=== PATIENT | female | born 1960 | race Caucasian/White ===

== ENCOUNTER → 2017-12-12 | Emergency (ER) | payer MEDICAID ==
[~2017-12-12] VITALS: Ht 165.1 cm; Wt 90.5 kg
[~2017-12-12] MED LIST: CEPH500C5 PO; DIPH-423 PO; EPIN0.3P8 IM; FAMO-128 PO; GEMF600T3 PO; LEVO50TA67 PO; LORA10TA65 PO; METH4TAB3 PO; OXYC-150 PO; PANT40TA39 PO; SUCR1ORA PO; albuterol 2.5 MG/3 ML nebule NEB ONE; diphenhydrAMINE 50 mg/ml inj IV ONE; epiNEPHrine 1 mg/ml inj SQ STA; famotidine/PF 10 mg/ml inj IV ONE; methylPREDNISolone sod succ 125mg/2ml vial IV ONE
[2017-12-12 21:33] VITALS: BP 118/57
== END | disposition home or self-care (01) ==
LOC: ER 17:59
DX: T78.02XA Anaphylactic reaction due to shellfish (crustaceans), initial encounter (principal); G89.29 Other chronic pain; E03.9 Hypothyroidism, unspecified; E78.00 Pure hypercholesterolemia, unspecified; I10 Essential (primary) hypertension; Z90.49 Acquired absence of other specified parts of digestive tract; Z90.710 Acquired absence of both cervix and uterus; Z88.5 Allergy status to narcotic agent
CPT/HCPCS: 94640; 94760; 96372; 96374; 96375; 96376; 99284; J0171; J1200; J2930; J3490

== ENCOUNTER 2018-01-03 17:51 | Emergency (ER) | payer MEDICAID ==
[~2018-01-03] VITALS: Ht 170.2 cm; Wt 83.0 kg
[~2018-01-03 17:51] MED LIST changes: -CEPH500C5 PO; -OXYC-150 PO; -albuterol 2.5 MG/3 ML nebule NEB ONE; -diphenhydrAMINE 50 mg/ml inj IV ONE; -epiNEPHrine 1 mg/ml inj SQ STA; -famotidine/PF 10 mg/ml inj IV ONE; -methylPREDNISolone sod succ 125mg/2ml vial IV ONE
[2018-01-03] MEDS ORDERED: TRAM50TA2 PO (22:09)
[2018-01-03] MEDS ORDERED: LIDO700A32 TOP (22:09)
[2018-01-03] MEDS ORDERED: BACL10TA PO (22:09)
[2018-01-03] MEDS ORDERED: LIDOcaine 5% patch TP ONE (22:15)
[2018-01-03] MEDS ORDERED: acetaminophen 325mg tablet PO ONE (22:15)
[2018-01-03 22:24] VITALS: BP 135/65
== END 2018-01-03 22:27 | disposition home or self-care (01) ==
LOC: ER 17:52
DX: M54.9 Dorsalgia, unspecified (principal); E78.00 Pure hypercholesterolemia, unspecified; I10 Essential (primary) hypertension; E03.9 Hypothyroidism, unspecified; Z88.6 Allergy status to analgesic agent
CPT/HCPCS: 99283

== ENCOUNTER 2019-04-10 10:04 | Emergency (ER) | payer MEDICAID ==
[~2019-04-10] VITALS: Ht 167.6 cm; Wt 100.0 kg
[~2019-04-10 10:04] MED LIST changes: +BACL10TA PO; -GEMF600T3 PO; +GEMF600T89 PO; +LIDO700A32 TOP
[2019-04-10 10:08] VITALS: BP 174/84
--- NOTE | 2019-04-10 10:21 | NUR ---
PT'S TWO YELLOW RINGS CUT AND REMOVED AND GIVEN TO THE PT AND SHE STATES SHE WILL PUT THEM IN HER WALLET.
[2019-04-10] MEDS ORDERED: LIDOcaine 1% w/epiNEPHrine 1:200,000 30ml vial IM ONE (10:35)
== END 2019-04-10 11:22 | disposition home or self-care (01) ==
LOC: ER 10:05
DX: S63.275A Dislocation of unspecified interphalangeal joint of left ring finger, initial encounter (principal); E78.00 Pure hypercholesterolemia, unspecified; I10 Essential (primary) hypertension; E03.9 Hypothyroidism, unspecified; G89.29 Other chronic pain; Z90.49 Acquired absence of other specified parts of digestive tract; Z90.710 Acquired absence of both cervix and uterus; Z98.890 Other specified postprocedural states; Z88.5 Allergy status to narcotic agent; Z79.899 Other long term (current) drug therapy; W01.0XXA Fall on same level from slipping, tripping and stumbling without subsequent striking against object, initial encounter; Y93.89 Activity, other specified; Y92.89 Other specified places as the place of occurrence of the external cause; Y99.8 Other external cause status
CPT/HCPCS: 26770; 73120; 73140; 99284; J3490

== ENCOUNTER 2019-12-01 15:05 | Emergency (ER) | payer MEDICAID ==
[~2019-12-01] VITALS: Ht 167.6 cm; Wt 100.0 kg
[~2019-12-01 15:05] MED LIST changes: -SUCR1ORA PO; +SUCR1ORA15 PO
[2019-12-01 15:31] VITALS: BP 137/67
--- NOTE | 2019-12-01 16:14 | NUR ---
pt seen and dc'd by provider
== END 2019-12-01 16:10 | disposition home or self-care (01) ==
LOC: ER 15:06
DX: S30.0XXA Contusion of lower back and pelvis, initial encounter (principal); M54.6 Pain in thoracic spine; E78.00 Pure hypercholesterolemia, unspecified; I10 Essential (primary) hypertension; E03.9 Hypothyroidism, unspecified; G89.29 Other chronic pain; Z90.49 Acquired absence of other specified parts of digestive tract; Z90.710 Acquired absence of both cervix and uterus; Z98.890 Other specified postprocedural states; Z88.5 Allergy status to narcotic agent; Z79.899 Other long term (current) drug therapy; W18.39XA Other fall on same level, initial encounter; Y93.89 Activity, other specified; Y92.098 Other place in other non-institutional residence as the place of occurrence of the external cause; Y99.8 Other external cause status
CPT/HCPCS: 99281

== ENCOUNTER → 2021-06-22 | Emergency (ER) | payer MEDICARE, MEDICAID ==
[~2021-06-22] VITALS: Ht 170.2 cm; Wt 86.3 kg
[~2021-06-22] MED LIST changes: +ALB0.5UD IH; +BUDE10.22 INH; +DIAZ2TAB PO; +LEVO25TA2 PO; +MECL-159 PO; +MECL-231 PO; +METO-395 PO; +acetaminophen 325mg tablet PO ONE; +ketorolac trometh. 30mg/ml inj. IM ONE
[2021-06-22 22:45] VITALS: BP 156/74
== END | disposition home or self-care (01) ==
LOC: ER 22:06
DX: M79.621 Pain in right upper arm (principal); E78.00 Pure hypercholesterolemia, unspecified; I10 Essential (primary) hypertension; E03.9 Hypothyroidism, unspecified; G89.29 Other chronic pain; Z87.01 Personal history of pneumonia (recurrent); Z90.89 Acquired absence of other organs; Z90.49 Acquired absence of other specified parts of digestive tract; Z90.710 Acquired absence of both cervix and uterus; Z98.890 Other specified postprocedural states; Z88.5 Allergy status to narcotic agent; Z88.8 Allergy status to other drugs, medicaments and biological substances; Z79.899 Other long term (current) drug therapy
CPT/HCPCS: 96372; 99283; J1885

== ENCOUNTER 2021-07-05 22:43 | Emergency (ER) | payer MEDICARE, MEDICAID ==
[~2021-07-05] VITALS: Ht 162.6 cm; Wt 98.0 kg
[~2021-07-05 22:43] MED LIST changes: -ALB0.5UD IH; -BUDE10.22 INH; -DIAZ2TAB PO; -LEVO25TA2 PO; -MECL-159 PO; -MECL-231 PO; -METO-395 PO; -acetaminophen 325mg tablet PO ONE; -ketorolac trometh. 30mg/ml inj. IM ONE
[2021-07-05] MEDS ORDERED: aspirin 81mg tab.chew PO ONE (23:00)
[2021-07-05] MEDS ORDERED: nitroGLYCERIN 0.4mg SUBLingual tab SL PRN (23:00)
[2021-07-05] MEDS ORDERED: normal saline 1000ML IV soln IVB ONE (23:10)
[2021-07-05] MEDS ORDERED: ondansetron/PF 4mg/2ml inj IV ONE (23:10)
[2021-07-05] MEDS ORDERED: iohexol 350MG/ML 100ml bottle IV ONE (23:16)
[2021-07-05 23:18] LABS: BASOPHILS % (AUTO) 0.4 % (0-1); EOSINOPHILS # (AUTO) 0.2 X10'3 (0-0.9); EOSINOPHILS % (AUTO) 2.9 % (0-6); HEMATOCRIT 36.3 % (35.0-45.0); HEMOGLOBIN 11.7 g/dl (12.0-16.0); LYMPHOCYTES # (AUTO) 1.8 X10'3 (1.1-4.8); LYMPHOCYTES % (AUTO) 25.1 % (21-51); MEAN CORPUSCULAR HEMOGLOBIN 28.4 PG (27.0-31.0); MEAN CORPUSCULAR HGB CONC 32.3 g/dL (33.0-36.5); MEAN CORPUSCULAR VOLUME 87.7 FL (78-98); MEAN PLATELET VOLUME 7.4 FL (7.4-10.4); MONOCYTES # (AUTO) 0.4 X10'3 (0-0.9); MONOCYTES % (AUTO) 5.3 % (2-12); NEUTROPHILS # (AUTO) 4.7 X10'3 (1.8-7.7); NEUTROPHILS % (AUTO) 66.3 % (42-75); PLATELET COUNT 197 X10'3 (140-440); RED BLOOD COUNT 4.14 X10'6 (4.20-5.60); RED CELL DISTRIBUTION WIDTH 14.5 % (11.5-14.5); WHITE BLOOD COUNT 7.1 X10'3 (4.5-11.0)
[2021-07-05 23:36] LABS: ALANINE AMINOTRANSFERASE 28 U/L (12-78); ALBUMIN 3.9 G/DL (3.4-5.0); ALBUMIN/GLOBULIN RATIO 1.3 (1.1-1.5); ALKALINE PHOSPHATASE 93 IU/L (46-116); ANION GAP 9 (8-16); ASPARTATE AMINO TRANSFERASE 12 U/L (10-37); BILIRUBIN,TOTAL 0.3 MG/DL (0.1-1.0); BLOOD UREA NITROGEN 16 MG/DL (7-18); BUN/CREATININE RATIO 14.5 (6.6-38.0); CALCIUM 8.2 MG/DL (8.5-10.1); CHLORIDE 108 MMOL/L (99-107); GLUCOSE 149 MG/DL (70-104); POTASSIUM 3.9 MMOL/L (3.5-5.1); SODIUM 143 MMOL/L (135-145); TOTAL CARBON DIOXIDE 25.8 MMOL/L (24-32); TOTAL PROTEIN 6.9 G/DL (6.4-8.2); eGFR 50 ML/MIN
[2021-07-05 23:37] LABS: D-DIMER 0.63 MG/L FEU (0-0.50)
[2021-07-05 23:44] LABS: MAGNESIUM 2.3 MG/DL (1.5-2.4); TROPONIN I < 0.04 NG/ML (0.0-0.05)
[2021-07-05] MEDS ORDERED: MECL-231 PO (23:48)
[2021-07-05] MEDS ORDERED: ALB0.5UD IH (23:50)
[2021-07-05] MEDS ORDERED: BUDE10.22 INH (23:50)
[2021-07-05] MEDS ORDERED: METO-395 PO (23:50)
[2021-07-05] MEDS ORDERED: LEVO25TA2 PO (23:50)
[2021-07-06] MEDS ORDERED: acetaminophen 325mg tablet PO ONE (00:50)
[2021-07-06 02:33] VITALS: BP 142/82
== END 2021-07-06 02:39 | disposition home or self-care (01) ==
LOC: ER 22:44
DX: R42 Dizziness and giddiness (principal); I12.9 Hypertensive chronic kidney disease with stage 1 through stage 4 chronic kidney disease, or unspecified chronic kidney disease; N18.9 Chronic kidney disease, unspecified; R10.13 Epigastric pain; R07.89 Other chest pain; R11.2 Nausea with vomiting, unspecified; E78.00 Pure hypercholesterolemia, unspecified; E03.9 Hypothyroidism, unspecified; G89.29 Other chronic pain; Z87.01 Personal history of pneumonia (recurrent); Z90.89 Acquired absence of other organs; Z90.49 Acquired absence of other specified parts of digestive tract; Z90.710 Acquired absence of both cervix and uterus; Z98.890 Other specified postprocedural states; Z88.5 Allergy status to narcotic agent; Z88.8 Allergy status to other drugs, medicaments and biological substances; Z79.899 Other long term (current) drug therapy
CPT/HCPCS: 36415; 71045; 71275; 74174; 80053; 83735; 83880; 84484; 85025; 85379; 93005; 96361; 96374; 99285; J2405; J7030; Q9967

== ENCOUNTER 2021-07-10 16:28 | Emergency (ER) | payer MEDICARE, MEDICAID ==
[~2021-07-10] VITALS: Ht 162.6 cm; Wt 88.6 kg
[~2021-07-10 16:28] MED LIST changes: +ALB0.5UD IH; +BUDE10.22 INH; -FAMO-128 PO; -GEMF600T89 PO; +LEVO25TA2 PO; -LEVO50TA67 PO; +MECL-231 PO; -METH4TAB3 PO; +METO-395 PO; -PANT40TA39 PO; -SUCR1ORA15 PO
[2021-07-10 17:34] LABS: BASOPHILS % (AUTO) 0.7 % (0-1); EOSINOPHILS # (AUTO) 0.3 X10'3 (0-0.9); HEMATOCRIT 38.3 % (35.0-45.0); HEMOGLOBIN 12.5 g/dl (12.0-16.0); LYMPHOCYTES # (AUTO) 1.9 X10'3 (1.1-4.8); LYMPHOCYTES % (AUTO) 30.6 % (21-51); MEAN CORPUSCULAR HGB CONC 32.6 g/dL (33.0-36.5); MEAN CORPUSCULAR VOLUME 88.8 FL (78-98); MEAN PLATELET VOLUME 8.1 FL (7.4-10.4); MONOCYTES # (AUTO) 0.4 X10'3 (0-0.9); MONOCYTES % (AUTO) 6.4 % (2-12); NEUTROPHILS # (AUTO) 3.7 X10'3 (1.8-7.7); NEUTROPHILS % (AUTO) 58.3 % (42-75); PLATELET COUNT 234 X10'3 (140-440); RED BLOOD COUNT 4.31 X10'6 (4.20-5.60); RED CELL DISTRIBUTION WIDTH 14.6 % (11.5-14.5); WHITE BLOOD COUNT 6.3 X10'3 (4.5-11.0)
[2021-07-10 17:42] LABS: ALANINE AMINOTRANSFERASE 27 U/L (12-78); ALBUMIN/GLOBULIN RATIO 1.3 (1.1-1.5); ALKALINE PHOSPHATASE 94 IU/L (46-116); ANION GAP 8 (8-16); ASPARTATE AMINO TRANSFERASE 16 U/L (10-37); BILIRUBIN,TOTAL 0.4 MG/DL (0.1-1.0); BLOOD UREA NITROGEN 19 MG/DL (7-18); BUN/CREATININE RATIO 17.3 (6.6-38.0); CALCIUM 8.8 MG/DL (8.5-10.1); CHLORIDE 107 MMOL/L (99-107); GLUCOSE 110 MG/DL (70-104); POTASSIUM 4.2 MMOL/L (3.5-5.1); SODIUM 142 MMOL/L (135-145); TOTAL CARBON DIOXIDE 26.8 MMOL/L (24-32); TOTAL PROTEIN 7.2 G/DL (6.4-8.2); eGFR 50 ML/MIN
[2021-07-10] MEDS ORDERED: ondansetron 4mg rapidly disintigrating tab PO ONE (18:15)
[2021-07-10] MEDS ORDERED: diphenhydrAMINE 25mg capsule PO ONE (18:35)
--- NOTE | 2021-07-10 18:45 | NUR ---
Assumed care of pt from RN. Agree with previous assessment with no changes to note.
[2021-07-10] MEDS ORDERED: DIAZ2TAB PO (20:18)
[2021-07-10] MEDS ORDERED: MECL-159 PO (21:13)
[2021-07-10 21:38] VITALS: BP 165/78
== END 2021-07-10 21:39 | disposition home or self-care (01) ==
LOC: ER 16:29
DX: R42 Dizziness and giddiness (principal); E78.00 Pure hypercholesterolemia, unspecified; I10 Essential (primary) hypertension; E03.9 Hypothyroidism, unspecified; G89.29 Other chronic pain; Z87.01 Personal history of pneumonia (recurrent); Z90.49 Acquired absence of other specified parts of digestive tract; Z98.890 Other specified postprocedural states; Z90.710 Acquired absence of both cervix and uterus; Z90.5 Acquired absence of kidney; Z88.5 Allergy status to narcotic agent; Z88.8 Allergy status to other drugs, medicaments and biological substances; Z79.899 Other long term (current) drug therapy
CPT/HCPCS: 36415; 70450; 71045; 80053; 82948; 83880; 84484; 85025; 93005; 99285; Q0163

== ENCOUNTER 2022-07-10 23:32 | Emergency (ER) | payer MEDICARE, MEDICAID ==
[~2022-07-10] VITALS: Ht 167.6 cm; Wt 90.9 kg
[~2022-07-10 23:32] MED LIST changes: +DIAZ2TAB PO; +MECL-159 PO
[2022-07-10 23:38] VITALS: BP 145/63
== END 2022-07-11 03:24 | disposition left against medical advice (07) ==
LOC: ER 23:33
DX: R51.9 Headache, unspecified (principal); Z53.21 Procedure and treatment not carried out due to patient leaving prior to being seen by health care provider

== ENCOUNTER 2022-07-20 19:54 | Emergency (ER) | payer MEDICARE, MEDICAID ==
[~2022-07-20] VITALS: Ht 167.6 cm; Wt 90.0 kg
[2022-07-20 20:40] VITALS: BP 149/76
[2022-07-20 20:51] LABS: BASOPHILS % (AUTO) 0.6 % (0-1); EOSINOPHILS # (AUTO) 0.2 X10'3 (0-0.9); EOSINOPHILS % (AUTO) 2.7 % (0-6); HEMATOCRIT 40.5 % (35.0-45.0); HEMOGLOBIN 13.8 g/dl (12.0-16.0); LYMPHOCYTES # (AUTO) 3.1 X10'3 (1.1-4.8); LYMPHOCYTES % (AUTO) 43.4 % (21-51); MEAN CORPUSCULAR HEMOGLOBIN 30.9 PG (27.0-31.0); MEAN CORPUSCULAR HGB CONC 34.1 g/dL (33.0-36.5); MEAN CORPUSCULAR VOLUME 90.6 FL (78-98); MEAN PLATELET VOLUME 8.2 FL (7.4-10.4); MONOCYTES # (AUTO) 0.6 X10'3 (0-0.9); MONOCYTES % (AUTO) 8.8 % (2-12); NEUTROPHILS # (AUTO) 3.2 X10'3 (1.8-7.7); NEUTROPHILS % (AUTO) 44.5 % (42-75); PLATELET COUNT 209 X10'3 (140-440); RED BLOOD COUNT 4.47 X10'6 (4.20-5.60); RED CELL DISTRIBUTION WIDTH 13.4 % (11.5-14.5); WHITE BLOOD COUNT 7.1 X10'3 (4.5-11.0)
[2022-07-20 21:05] LABS: ALANINE AMINOTRANSFERASE 24 U/L (12-78); ALBUMIN 4.3 G/DL (3.4-5.0); ALBUMIN/GLOBULIN RATIO 1.2 (1.1-1.5); ALKALINE PHOSPHATASE 97 IU/L (46-116); ANION GAP 12 (8-16); ASPARTATE AMINO TRANSFERASE 13 U/L (10-37); BILIRUBIN,TOTAL 0.2 MG/DL (0.1-1.0); BLOOD UREA NITROGEN 31 MG/DL (7-18); BUN/CREATININE RATIO 19.4 (6.6-38.0); CALCIUM 9.2 MG/DL (8.5-10.1); CHLORIDE 102 MMOL/L (99-107); GLUCOSE 134 MG/DL (70-104); POTASSIUM 3.6 MMOL/L (3.5-5.1); SODIUM 142 MMOL/L (135-145); TOTAL CARBON DIOXIDE 28.2 MMOL/L (24-32); eGFR 33 ML/MIN
== END 2022-07-20 23:40 | disposition home or self-care (01) ==
LOC: ER 19:55
DX: F41.0 Panic disorder [episodic paroxysmal anxiety] (principal); E78.00 Pure hypercholesterolemia, unspecified; I10 Essential (primary) hypertension; E03.9 Hypothyroidism, unspecified; G89.29 Other chronic pain; Z90.49 Acquired absence of other specified parts of digestive tract; Z88.5 Allergy status to narcotic agent; Z79.899 Other long term (current) drug therapy
CPT/HCPCS: 36415; 71045; 80053; 82948; 83880; 84484; 85025; 93005; 99285

== ENCOUNTER 2024-06-27 15:38 | Emergency (ER) | payer MEDICARE, MEDICAID ==
[~2024-06-27] VITALS: Ht 167.6 cm; Wt 91.2 kg
[~2024-06-27 15:38] MED LIST changes: +LIDO700A47 TOP; -MECL-159 PO; +MECL-302 PO
[2024-06-27 15:40] VITALS: TEMP 98
[2024-06-27] MEDS ORDERED: CEPH-585 PO (16:44)
[2024-06-27] MEDS ORDERED: SULF1TAB49 PO (16:44)
[2024-06-27 16:58] VITALS: BP 121/60; PULSE 69; RESP 16; O2SAT 96
== END 2024-06-27 17:00 | disposition home or self-care (01) ==
LOC: ER 15:39
DX: S80.921A Unspecified superficial injury of right lower leg, initial encounter (principal); S31.109A Unspecified open wound of abdominal wall, unspecified quadrant without penetration into peritoneal cavity, initial encounter; Z88.5 Allergy status to narcotic agent; Z79.1 Long term (current) use of non-steroidal anti-inflammatories (NSAID); Z79.899 Other long term (current) drug therapy; W57.XXXA Bitten or stung by nonvenomous insect and other nonvenomous arthropods, initial encounter; Y93.89 Activity, other specified; Y92.89 Other specified places as the place of occurrence of the external cause; Y99.8 Other external cause status
CPT/HCPCS: 99283

== ENCOUNTER 2024-07-06 02:20 | Emergency (ER) | payer MEDICARE, MEDICAID ==
[~2024-07-06] VITALS: Ht 167.6 cm; Wt 90.9 kg
[~2024-07-06 02:20] MED LIST changes: +CEPH-585 PO; +SULF1TAB49 PO
[2024-07-06] MEDS ORDERED: SULF1TAB45 PO (03:57)
[2024-07-06] MEDS ORDERED: CEPH-585 PO (03:57)
[2024-07-06 04:21] VITALS: PULSE 60
[2024-07-06 04:23] VITALS: BP 117/71; RESP 16; TEMP 97.9; O2SAT 95
== END 2024-07-06 04:28 | disposition home or self-care (01) ==
LOC: ER 02:21
DX: L03.115 Cellulitis of right lower limb (principal); I10 Essential (primary) hypertension; Z88.5 Allergy status to narcotic agent; Z88.6 Allergy status to analgesic agent
CPT/HCPCS: 99283

== ENCOUNTER 2025-09-06 18:59 | Emergency (ER) | payer MEDICARE, MEDICAID ==
[~2025-09-06] VITALS: Ht 167.6 cm; Wt 88.0 kg
[~2025-09-06 18:59] MED LIST changes: -ALB0.5UD IH; +APIX5TAB3 PO; +ATOR40TA72 PO; -BACL10TA PO; +BACL10TA2 PO; -BUDE10.22 INH; -CEPH-585 PO; -DIAZ2TAB PO; -DIPH-423 PO; -EPIN0.3P8 IM; +FURO-149 PO; -LEVO25TA2 PO; +LEVO50TA8 PO; +LIDO-52 TOP; -LIDO700A32 TOP; -LORA10TA65 PO; -MECL-231 PO; -MECL-302 PO; -METO-395 PO; +PANT40TA54 PO; +POTA-207; +SOTA80TA73 PO; -SULF1TAB49 PO
[2025-09-06 19:08] VITALS: BP 123/63; PULSE 62; RESP 15; TEMP 96.8; O2SAT 95
--- NOTE | 2025-09-06 20:51 | Physician Documentation ---
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 Tetanus within 5 years: Yes Medication Reconciliation Allergies: Coded Allergies: tramadol (Verified Allergy, Intermediate, itchy, 09/06/25) morphine (Unverified Allergy, Unknown, 09/06/25) hydrocodone (Unverified Adverse Reaction, Unknown, ITCHING, 09/06/25) Uncoded Allergies: NUTS (Allergy, Severe, 06/22/21) SHELL FISH (Allergy, Severe, 12/12/17) VICODINE (Allergy, Intermediate, itchy, 07/01/25) Scheduled Apixaban (Eliquis), 1 TAB PO BID, (Reported) Atorvastatin Calcium (Atorvastatin Calcium), 1 TAB PO DAILY, (Reported) Baclofen (Baclofen), 1 TAB PO BID, (Reported) Furosemide (Lasix), 1 TAB PO DAILY, (Reported) Levothyroxine Sodium (Levothyroxine Sodium), 1 TAB PO DAILY, (Reported) Lidocaine (Lidoderm), 1 PATCH TOP DAILY Pantoprazole Sodium (Pantoprazole Sodium), 1 TAB PO BID, (Reported) Sotalol Hcl* (Betapace*), 40 MG PO BID, (Reported) Scheduled PRN Lidocaine (Lidocaine), 1 PATCH TOP DAILY PRN for pain Miscellaneous Medications Potassium Chloride* (K-Dur*), (Reported) Past Medical History Past Medical History: Angina, High Cholesterol, Hypertension, Pneumonia, *GI/HEPATOBILIARY*, Hernia, Hypothyroidism, Chronic Pain Past Surgical History: appendectomy, cholecystectomy, hysterectomy, orthopedic surgeries, other Other Past Surgical History: Right nephrectomy, hernia repair Patient History: (DM Type 2) Diabetes mellitus type 2 MOTHER, Age: 76 FH: dementia MOTHER, Age: 76 Alcohol Use: None Drug Use: none Lives with: Family Lives In: Home Occupation: employed Review of Systems ROS As stated above in the HPI, otherwise all systems are reviewed and negative. Physical Exam Vital Signs: Temperature: 96.8, Source: Temporal, Heart Rate: 62, Respiratory Rate: 15, BP: 123/63, Pulse Oximetry: 95, Weight: 88.000 Physical Exam VITALS: Reviewed and as above. GENERAL: Alert, nontoxic appearing, no apparent distress. RESPIRATORY: No increased work of breathing, no respiratory distress, speaking in full clear sentences SKIN: Small bleeding wound to right 5th finger, bleeding is oozing currently controlled with direct pressure and gauze. Progress Progress Note Patient has advised registration desk that her finger has stopped bleeding and no longer wishes to be seen. Results/Orders Results/Orders Vital Signs 09/06/25 19:08 Temp 96.8 Pulse 62 Resp 15 B/P (MAP) 123/63 Pulse Ox 95 Medical Decision Making Additional information obtaine: N/A Findings MSE performed in triage and patient returned to ED lobby by nursing staff to await available ED room. Patient was provided gauze and asked to applied direct pressure to wound while waiting in lobby. Patient has advised registration staff she no longer wishes to be seen as the bleeding has stopped with direct pressure. Patient eloped from lobby prior to reassessment. General Diff Dx:Considerations: Include: Sprain, Ulcer Shoulder Diff Dx:Consideration: Unlikely: AC separation, Adhesive capsulitis, Arthritis, Bicipital tendonitis, Calcific tendonitis, Cervical disc disease, Contusion, Dislocation, Fracture-humerus, Fracture-scapula, Fracture-clavicle, GB disease, Hematoma, Impingement syndrome, Myocardial infarction, Neurovascular injury, Open fracture-humerus, Open fracture-scapula, Open fracture-clavicle, Rotator cuff injury, SC dislocatoin, Sprain, Subacromial bursitis, Other Elbow Diff Dx:Considerations: Unlikely: Abrasion, Arthritis, Contustion, DJD, Fracture-humerus, Fracture-radial head, Fracture-radius, Fracture-ulna, Gout, Hematoma, Laceration, Neurovascular injury, Olecranon bursitis, Open fracture, Osteomyelitis, Radial head subluxation, Rheumatoid arthritis, Septic, Sprain, Ulcer, Other Wrist Diff Dx:Considerations: Unlikely: Abrasion, Arthritis, DJD, Gout, Rheumatoid, Septic, Carpal tunnel snydrome, Contusion, Dislocation, Fracture- carpal, Fracture-radius, Fracture-ulna, Ganglion, Laceration, Neurovascular injury, Open fracture, Strain, Other Hand Diff Dx:Considerations: Unlikely: Abrasion, Arthritis, Contusion, DJD, Felon, Fracture-carpal, Fracture-metacarpal, Fracture-phalynx, Fracture-radius, Fracture-ulna, Gout, Hematoma, Herpetic gita, Laceration, Neurovascular injury, Open fracture, Paronychia, Rheumatoid arthritis, Septic, Sprain, Subungual hematoma, Tenosynovitis, Volar plate injury, Cellulitis, Malunion, Other Finger Diff Dx:Considerations: Include: Abrasion, Cellulitis, Contusion, Laceration, Neurovascular injury, Subungual hematoma, Other (Uncontrolled hemorrhage) Departure Disposition: 07 LEFT AWOL/ELOPED Impression: Primary Impression: Bleeding from wound Referrals: NO PRIMARY CARE PROVIDER (PCP) Signature Scribe Signature: No scribe Attestation: The note accurately reflects work and decisions made by me.KACEY Cabezas 09/07/25 01:00 FRANCISCO JAVIER JAIMES Sep 06, 2025 20:51
== END 2025-09-06 21:04 | disposition left against medical advice (07) ==
LOC: ER 18:59
DX: S60.946A Unspecified superficial injury of right little finger, initial encounter (principal); E03.9 Hypothyroidism, unspecified; E11.9 Type 2 diabetes mellitus without complications; E78.00 Pure hypercholesterolemia, unspecified; I10 Essential (primary) hypertension; Z88.5 Allergy status to narcotic agent; Z88.8 Allergy status to other drugs, medicaments and biological substances; Z90.49 Acquired absence of other specified parts of digestive tract; Z90.5 Acquired absence of kidney; Z90.710 Acquired absence of both cervix and uterus; Z98.890 Other specified postprocedural states; X58.XXXA Exposure to other specified factors, initial encounter; Y93.89 Activity, other specified; Y92.89 Other specified places as the place of occurrence of the external cause; Y99.8 Other external cause status
CPT/HCPCS: 99282

== ENCOUNTER 2025-09-18 18:56 | Emergency (ER) | payer MEDICARE, MEDICAID ==
[~2025-09-18] VITALS: Ht 167.6 cm; Wt 85.0 kg
[2025-09-18 19:09] VITALS: BP 139/71; PULSE 74; RESP 15; TEMP 96.8; O2SAT 98
[2025-09-18] MEDS ORDERED: CEPH-585 PO (23:06)
--- NOTE | 2025-09-18 23:06 | Physician Documentation ---
History of Present Illness ~ Chief Complaint: Bite-insect Stated Complaint: BUG BITE Time Seen by MD: 22:32 Primary Medical Doctor: UNKNOWN HPI This is a 65-year-old female who presents with an area of pain and swelling to her right upper cheek, patient reports that around 2:00 p.m. today she noticed a small painful spot that has become more swollen tonight. Patient reports no other acute symptoms or concerns including no fever. Reports no known injury to the area and no known bite to the area. Tetanus within 5 years?: Yes Medication Reconciliation Allergies: Coded Allergies: tramadol (Verified Allergy, Intermediate, itchy, 09/18/25) morphine (Unverified Allergy, Unknown, 09/18/25) hydrocodone (Unverified Adverse Reaction, Unknown, ITCHING, 09/18/25) Uncoded Allergies: NUTS (Allergy, Severe, 06/22/21) SHELL FISH (Allergy, Severe, 12/12/17) VICODINE (Allergy, Intermediate, itchy, 07/01/25) Scheduled Apixaban (Eliquis), 1 TAB PO BID, (Reported) Atorvastatin Calcium (Atorvastatin Calcium), 1 TAB PO DAILY, (Reported) Baclofen (Baclofen), 1 TAB PO BID, (Reported) Cephalexin*Monohydrate* (Keflex*), 1 CAP PO QID Furosemide (Lasix), 1 TAB PO DAILY, (Reported) Levothyroxine Sodium (Levothyroxine Sodium), 1 TAB PO DAILY, (Reported) Lidocaine (Lidoderm), 1 PATCH TOP DAILY Pantoprazole Sodium (Pantoprazole Sodium), 1 TAB PO BID, (Reported) Sotalol Hcl* (Betapace*), 40 MG PO BID, (Reported) Scheduled PRN Lidocaine (Lidocaine), 1 PATCH TOP DAILY PRN for pain Miscellaneous Medications Potassium Chloride* (K-Dur*), (Reported) Past Medical History Past Medical History: Angina, High Cholesterol, Hypertension, Pneumonia, *GI/HEPATOBILIARY*, Hernia, Hypothyroidism, Chronic Pain Past Surgical History: appendectomy, cholecystectomy, hysterectomy, orthopedic surgeries, other Other Past Surgical History: Right nephrectomy, hernia repair Patient History: (DM Type 2) Diabetes mellitus type 2 MOTHER, Age: 76 FH: dementia MOTHER, Age: 76 Alcohol Use: None Drug Use: none Lives with: Family Lives In: Home Occupation: employed Review of Systems ROS As stated above in the HPI, otherwise all systems are reviewed and negative. Physical Exam Vital Signs: Temperature: 96.8, Source: Temporal, Heart Rate: 74, Respiratory Rate: 15, BP: 139/71, Pulse Oximetry: 98, Weight: 85.000 Physical Exam VITALS: Reviewed and as above. GENERAL: Alert, nontoxic appearing, no apparent distress. RESPIRATORY: No increased work of breathing, no respiratory distress, speaking in full clear sentences SKIN: Skin of right upper cheek this is all shallow open area with purulent appearance with minimal surrounding erythema, surrounding 1cm wheal without significant induration Progress Results/Orders Results/Orders Completed Orders - FRANCISCO JAVIER JAIMES Cephalexin Capsule (Keflex Capsule) (09/18/25 23:10) Acetaminophen 325mg Tablet (Tylenol Tabl (09/18/25 23:10) Medications Received in ER Medications (Trade) Dose Ordered Sig/Kalpesh Route PRN Reason Start Time Stop Time Status Last Admin Dose Admin (Keflex capsule) 500 mg ONCE ONCE PO 09/18/25 23:10 09/18/25 23:11 DC 09/18/25 23:14 500 MG (Tylenol tablet) 650 mg ONCE ONCE PO 09/18/25 23:10 09/18/25 23:11 DC 09/18/25 23:15 650 MG Vital Signs 09/18/25 19:09 Temp 96.8 Pulse 74 Resp 15 B/P (MAP) 139/71 Pulse Ox 98 Medical Decision Making Additional information obtaine: N/A Findings This is a 65-year-old female presents with a small area of pain and swelling to her right upper cheek, physical exam demonstrated small open area with purulent appearance, area was not significantly erythematous, indurated, and no fluctuance. Insect bite considered however due to the purulent appearing nature of the wound we will be treated with oral antibiotics as potential skin infection. The wound appears uncomplicated and no evidence of deep tissue infection. Patient is otherwise well-appearing and appropriate for outpatient follow up. Provided home care instructions follow up instructions, and return to care precautions which she verbalized understanding of. Differential Dx:Considerations: Include: Abrasion, Allergic reaction, Anaphylaxis, Cellulitis, Contusion, Fracture, Hematoma, Insect envenomation, Laceration, Neurovascular injury, Punture wound, Retained foreign body, Urticaria Departure Time of Disposition: 23:06 Disposition: 01 HOME / SELF CARE / HOMELESS Impression: Primary Impression: Skin infection Condition: Improved Discharge Instructions: Cellulitis, Adult Additional Instructions: Please take antibiotics as prescribed, you may use Tylenol as directed by [id number] packaging as needed for pain. Please follow up with your primary care provider in the next few days. Please return to the emergency department for any new or worsening concerning symptoms. Referrals: NO PRIMARY CARE PROVIDER (PCP) Prescriptions Cephalexin*Monohydrate* (Keflex*) 500 Mg Capsule 1 CAP PO QID for 5 Days, #20 CAP Prov: FRANCISCO JAVIER JAIMES 09/18/25 Education Educated: Patient Educated regarding: diagnosis, treatment, prognosis, need for follow up Signature Scribe Signature: No scribe Attestation: The note accurately reflects work and decisions made by me.KACEY Cabezas 09/19/25 02:39 FRANCISCO JAVIER JAIMES Sep 18, 2025 23:06
== END 2025-09-18 23:20 | disposition home or self-care (01) ==
LOC: ER 18:57
DX: L08.9 Local infection of the skin and subcutaneous tissue, unspecified (principal); E03.9 Hypothyroidism, unspecified; E11.9 Type 2 diabetes mellitus without complications; E78.00 Pure hypercholesterolemia, unspecified; G89.29 Other chronic pain; I10 Essential (primary) hypertension; Z90.49 Acquired absence of other specified parts of digestive tract; Z90.5 Acquired absence of kidney; Z90.710 Acquired absence of both cervix and uterus; Z98.890 Other specified postprocedural states; Z88.8 Allergy status to other drugs, medicaments and biological substances; Z88.5 Allergy status to narcotic agent; Z79.899 Other long term (current) drug therapy; W57.XXXA Bitten or stung by nonvenomous insect and other nonvenomous arthropods, initial encounter; Y93.89 Activity, other specified; Y92.89 Other specified places as the place of occurrence of the external cause; Y99.8 Other external cause status
CPT/HCPCS: 99283

== ENCOUNTER 2025-10-06 14:34 | Outpatient (CLI) | payer MEDICARE, MEDICAID ==
--- NOTE | 2025-10-07 04:41 | RADIOLOGY REPORT ---
CLINICAL INDICATION: SACROCOCCYGEAL DISORDERS, PAIN IN RIGHT HIP COMPARISON: None TECHNIQUE: Multiplanar, multisequence MRI of the right hip was performed without intravenous contrast. The pelvis and contralateral hip are included on the large [id number] images. CONTRAST: None INTERPRETATION: Bones, joints and articular cartilage: There is no fracture or dislocation. No marrow replacing lesion. No full-thickness articular cartilage loss. There is no avascular necrosis. The right hip joint space is maintained. There is a right hip joint effusion. Mild degenerative changes in the pubic symphysis. Left hip joint space is maintained. Soft tissues: There is no tendon tear. Regional muscles are normal in bulk and signal characteristics. No bursitis or other fluid collection. The course of the sciatic nerves is visualized and within normal limits. No pelvic lymphadenopathy. Bilateral fat containing femoral hernias. IMPRESSION: 1. MRI of the right hip demonstrates no internal derangement. 2. Mild degenerative changes in the pubic symphysis.
== END 2025-10-06 23:59 | disposition home or self-care (01) ==
LOC: MRI02 14:34
PROVIDERS: ATTEND Physical Medicine & Rehabilitation
DX: M16.11 Unilateral primary osteoarthritis, right hip (principal); M53.3 Sacrococcygeal disorders, not elsewhere classified; M25.551 Pain in right hip; M25.451 Effusion, right hip
CPT/HCPCS: 72195